=== PATIENT | male | born 1980 | race Caucasian/White ===

== ENCOUNTER 2018-02-27 16:43 | Emergency (ER) | payer SELFPAY ==
[2018-02-27 16:44] VITALS: BP 133/70; PULSE 108; RESP 14; TEMP 37.2; O2SAT 95; BMI 45.4
--- NOTE | 2018-02-27 17:10 | CT_ITS ---
STUDY: CT ABDOMEN AND PELVIS WITHOUT CONTRAST REASON FOR EXAM: Male, 37 years old. Pain of the penis and testes. RADIATION DOSAGE (If Supplied By Facility): CTDIvol = ( 17.58 ) mGy, DLP = ( 1051.59 ) mGycm TECHNIQUE: Transaxial images were obtained from the dome of the diaphragm to the symphysis pubis without oral contrast, and without intravenous contrast. Sagittal and coronal images were reconstructed. Individualized dose optimization techniques were used for this CT. COMPARISON: None. FINDINGS: The visualized lung bases are unremarkable. The visualized portions of the heart are within normal limits. There is decreased attenuation of the liver consistent with steatosis. There is hepatomegaly. Normal gallbladder and extrahepatic biliary system. Normal spleen. Normal pancreas. Normal bilateral adrenal glands. Normal right kidney. Normal left kidney. No hydronephrosis. Evaluation of the GI tract is limited by absence of oral contrast. Cannot exclude stomach wall thickening. No dilated loops of bowel or evidence for obstruction. Cannot exclude segmental thickening of the [place] of the small or large bowel. Cannot exclude enteritis or colitis. Moderate diffuse fecal retention. Appendix within normal limits. Normal abdominal aorta. Normal inferior vena cava. Normal retroperitoneum. Normal contour of the urinary bladder. Along the posterior wall to the right of midline there is a 4 mm calculus which may have recently passed into the bladder. There is a left-sided inguinal hernia containing adipose tissue. Normal osseous structures. CT/Abdomen/Pelvis without Cont IMPRESSION: Possible recently passed stone situated along the posterior wall of the bladder. No hydronephrosis on either side. Fatty liver with hepatomegaly. Electronically Signed: Baltazar Gomez MD at 18:17 EDT , Service support ,
[2018-02-27] MEDS: Morphine 4 MG/ML Syringe IV (17:22)
[2018-02-27] MEDS: 0.9% Normal Saline 1,000 ML 150 ML IV (17:22)
[2018-02-27] MEDS: Ondansetron 4 MG/2 ML Vial IV (17:22)
[2018-02-27] MEDS: Ketorolac 30 MG/ML Syringe IV (17:22)
[2018-02-27 17:42] LABS: Bacteria 0 SEEN /hpf (None Seen); Mucous, Urine 0 SEEN /hpf (<or=2+)
[2018-02-27 17:48] LABS: Color, Urine Yellow (Yellow); Glucose, Dipstick Normal (Normal); Ketone-Dipstick 5 mg/dl (Negative); Leukocyte Esterase-Dipstick 100 /ul (Negative); Nitrite-Dipstick Negative (Negative); Occult Blood-Urine 250 /ul (Negative); Protein-Dipstick 30 mg/dl (Negative); Specific Gravity, Urine 1.025 (1.002-1.030); Urine Bilirubin Dipstick Negative (Negative); Urine Clarity Sl. Cloudy (Clear); Urine Urobilinogen Normal (Normal)
[2018-02-27 17:57] LABS: Amorphous Sediment 1+ URATE; Red Blood Cells-Urine 10-25 SEEN /hpf (0-5); Squamous Epithelial Cells - UA 0-5 SEEN /hpf (0-5); White Blood Cells 5-10 SEEN /hpf (0-5)
[2018-02-27 18:02] LABS: Absolute Lymphocyte Count 2.36 X10^3/ul (0.83-4.51); Absolute Neutrophil Count 5.1 X10^3/uL (2.0-7.7); Basophil# 0.04 X10^3/uL; Basophil% 0.4 % (0-1); Eosinophil# 0.67 X10^3/uL; Eosinophils% 7.5 % (0-5); Hematocrit 47.8 % (40-54); Hemoglobin 15.2 g/dl (13.0-16.5); Lymphocyte # 2.36 X10^3/ul (4.0); Lymphocyte % 26.3 % (19-41); Mean Corp Hgb Conc 31.8 g/gl (32-36); Mean Corpuscular Hgb 27.9 pg (27.0-32.0); Mean Corpuscular Volume 87.9 fL (80-94); Mean Platelet Vol. 11.2 fl (6.2-12.0); Monocyte# 0.77 X10^3/uL; Monocyte% 8.6 % (0-10); Neutrophil # 5.11 X10^3/uL (2.7-7.7); Neutrophil % 57.1 % (47-70); Platelet Count 204 K/mm3 (150-450); RBC Distribution Width CV 14.3 % (11.6-14.6); RBC Distribution Width SD 45.4 fl (35.1-43.9); Red Blood Count 5.44 M/mm3 (4.6-6.2)
[2018-02-27 18:03] LABS: Anion Gap 9 (5-15); BUN 13 mg/dL (7-18); BUN/Creat Ratio 11.9 RATIO (10-20); Calcium,Total 9.1 mg/dL (8.5-10.1); Chloride 103 mmol/L (98-107); Creatinine, Serum 1.09 mg/dL (0.70-1.30); EST Glomerular Filtration Rate 80 mL/min (>60); Est Glom Filt Rate - Afr Amer 97 mL/min (>60); Estimated Creatinine Clearance 99.87 ml/min; Glucose 123 mg/dL (74-106); POSITIVE COUNT NO; POSITIVE DIFFERENTIAL NO; POSITIVE MORPHOLOGY NO; Potassium 3.8 mmol/L (3.5-5.1); Sodium Level 137 mmol/L (136-145)
--- NOTE | 2018-02-27 19:11 | ED.VISSUMM ---
- ER Visit Summary Date of Service: 02/27/18 Chief Complaint: [Left testicle pain and penis pain] History of Present Illness: The patient is a 37 M [presents the emergency department complaint of pain in his left testicle and penis that he has had for over 24 hours. Patient states the discomfort came on gradually. Patient rates his pain an 8 out of 10. Patient has some mild tenderness in the lower abdomen. Patient states that yesterday had a hard time urinating and that he had a hard time starting his stream and get the urine out. Patient had subjective fever at home. Denies any blood in his urine. Denies any trauma to his testicles or abdomen.] Physical Examination: [HEENT-PERRLA, EOMI. Cranial nerves II through XII grossly intact. TMs clear. Mucous membranes moist. No adenopathy. Cardiovascular-regular rate and rhythm without murmur or ectopy Lungs-clear to auscultation, chest wall stable without crepitus or subcu emphysema Abdomen-normoactive bowel sounds, soft. Patient has some mild tenderness over the suprapubic region. There is no rebound, rigidity, or perineal signs. exam-patient is circumcised. Patient does have some tenderness over the left epididymis. He has normal cremasteric reflex and patient has a vertical lie of the testicle. No masses palpated in the inguinal canal. No purulent drainage noted from the urethral meatus. Extremities-intact ?4, normal range of motion, normal pulses, atraumatic] Test Results: [CBC with differential was unremarkable. Chemistries unremarkable. Urinalysis showed small amount of blood but no evidence of infection. CT flank showed a small stone within the bladder and the question recently passed stone but no evidence of hydronephrosis.] Emergency Department Course and Treatment: [Patient was medicated with Toradol, morphine, and Zofran. 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 He will be referred to urology for follow-up.] Disposition: [Discharged home in stable condition. Patient advised to return if worsening pain, fever, or condition should worsen anyway.] Impression: [Left testicle pain-suspect epididymitis versus recently passed kidney stone] This note was generated with [employer] dictation software. It may contain incorrect words, spelling, and punctuation that were not noted in review of the chart prior to signing ED Disposition - Plan for ED Patient: Chief Complaint: Male Pain/Injury Referrals: Care Physician,No Primary [Primary Care Provider] -
[2018-02-27 19:12] VITALS: BP 136/88; PULSE 79; RESP 18; O2SAT 98
--- NOTE | 2018-02-27 19:15 | ED.DCSUM_ITS ---
- ER Visit Summary Date of Service: 02/27/18 Chief Complaint: [Left testicle pain and penis pain] History of Present Illness: The patient is a 37 M [presents the emergency department complaint of pain in his left testicle and penis that he has had for over 24 hours. Patient states the discomfort came on gradually. Patient rates his pain an 8 out of 10. Patient has some mild tenderness in the lower abdomen. Patient states that yesterday had a hard time urinating and that he had a hard time starting his stream and get the urine out. Patient had subjective fever at home. Denies any blood in his urine. Denies any trauma to his testicles or abdomen.] Physical Examination: [HEENT-PERRLA, EOMI. Cranial nerves II through XII grossly intact. TMs clear. Mucous membranes moist. No adenopathy. Cardiovascular-regular rate and rhythm without murmur or ectopy Lungs-clear to auscultation, chest wall stable without crepitus or subcu emphysema Abdomen-normoactive bowel sounds, soft. Patient has some mild tenderness over the suprapubic region. There is no rebound, rigidity, or perineal signs. exam-patient is circumcised. Patient does have some tenderness over the left epididymis. He has normal cremasteric reflex and patient has a vertical lie of the testicle. No masses palpated in the inguinal canal. No purulent drainage noted from the urethral meatus. Extremities-intact ?4, normal range of motion, normal pulses, atraumatic] Test Results: [CBC with differential was unremarkable. Chemistries unremarkable. Urinalysis showed small amount of blood but no evidence of infection. CT flank showed a small stone within the bladder and the question recently passed stone but no evidence of hydronephrosis.] Emergency Department Course and Treatment: [Patient was medicated with Toradol, morphine, and Zofran. 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 He will be referred to urology for follow-up.] Disposition: [Discharged home in stable condition. Patient advised to return if worsening pain, fever, or condition should worsen anyway.] Impression: [Left testicle pain-suspect epididymitis versus recently passed kidney stone] This note was generated with [employer] dictation software. It may contain incorrect words, spelling, and punctuation that were not noted in review of the chart prior to signing ED Disposition - Plan for ED Patient: Chief Complaint: Male Pain/Injury Referrals: Care Physician,No Primary [Primary Care Provider] -
--- NOTE | 2018-02-27 19:16 | DCINST.ED_ITS ---
ED Disposition - Plan for ED Patient: Chief Complaint: Male Pain/Injury Instructions: ED Epididymitis, ED Stone Renal W Colic Prescriptions: Hydrocodone/Acetaminophen [[place] 5-325 Tablet] 1 - 2 ea PO 4X/DAY PRN PRN 3 Days #12 tab PRN Reason: Pain Smz/Tmp Ds [Bactrim Ds] 1 tab PO BID #28 tab Referrals: Care Physician,No Primary [Primary Care Provider] - Fredis Ann MD [STAFF PHYSICIAN] - 3-5 Days
--- NOTE | 2018-02-27 19:17 | ED.DEP ---
ED Disposition - Plan for ED Patient: Chief Complaint: Male Pain/Injury Instructions: ED Epididymitis, ED Stone Renal W Colic Prescriptions: Hydrocodone/Acetaminophen [[place] 5-325 Tablet] 1 - 2 ea PO 4X/DAY PRN PRN 3 Days #12 tab PRN Reason: Pain Smz/Tmp Ds [Bactrim Ds] 1 tab PO BID #28 tab Referrals: Fredis Ann MD [STAFF PHYSICIAN] - 3-5 Days Care Physician,No Primary [Primary Care Provider] -
--- NOTE | 2018-02-27 19:17 | ED.RN ---
PATIENT REFUSED US OF RIGHT TESTICAL DUE TO HIM HAVING TO LEAVE TO PICK HIS KIDS UP
== END 2018-02-27 19:28 | disposition home or self-care (01) ==
LOC: ED 17:37
PROVIDERS: Emergency Provider Emergency Medicine
DX: N50.812 Left testicular pain (principal); N45.1 Epididymitis; Z72.0 Tobacco use
CPT/HCPCS: 74176; 80048; 81001; 85025; 96361; 96374; 96375; 99283; J7030; A4216; J2405